=== PATIENT | female | born 1985 | race American Indian/Alaskan Native ===

== ENCOUNTER 2017-04-06 03:47 | Emergency (ER) | payer BC ==
[2017-04-06 04:05] VITALS: O2SAT 99
--- NOTE | 2017-04-06 04:09 | C.PDOC ---
History Of Present Illness pt states that she woke up with her mouth itching and a feeling of tightness in her throat. took a benadrul and claritin [employer]. Speaking in complete sentences. States thatshe has had similar episodes about once every 4-6 weeks. Unknown etiology. Pt was unable to find a correlation with anything., She does state that sometimes if she eats at restaurants, she get this sensation. last ate a kale salad and a pretzel. No f/c/n/v Time Seen by Provider: 04/06/17 04:05 Chief Complaint (Nursing): Allergic Reaction History Per: Patient History/Exam Limitations: no limitations Onset/Duration Of Symptoms: Hrs Current Symptoms Are (Timing): Still Present Context: Other Possible Cause: Unknown Associated Symptoms: Swelling. denies: Chest Pain Home/EMS Treatment: Benadryl Severity: Moderate Pain Scale Rating Of: 4 Recent travel outside of the [place]: No Additional History Per: Patient Past Medical History Reviewed: Historical Data, Nursing Documentation, Vital Signs Vital Signs: Last Vital Signs Temp 98.9 F 04/06/17 03:58 Pulse 95 H 04/06/17 03:58 Resp 16 04/06/17 03:58 BP 127/65 04/06/17 03:58 Pulse Ox 99 04/06/17 04:16 - Medical History PMH: Asthma Family History: States: No Known Family Hx - Social History Hx Alcohol Use: No Hx Substance Use: No Review Of Systems Constitutional: Negative for: Fever, Chills Eyes: Negative for: Redness ENT: Positive for: Mouth Swelling Cardiovascular: Negative for: Chest Pain Respiratory: Negative for: Shortness of Breath Gastrointestinal: Negative for: Nausea Genitourinary: Negative for: Dysuria Musculoskeletal: Negative for: Back Pain Skin: Negative for: Rash Neurological: Negative for: Weakness Psych: Negative for: Anxiety Physical Exam - Physical Exam Appears: Non-toxic Skin: Warm, Dry Head: Normacephalic Eye(s): bilateral: Normal Inspection Oral Mucosa: Moist Tongue: Normal Appearing Lips: Swelling (lower lip(edematous)) Teeth: Normal Dentition Throat: No Erythema, No Exudate, No Drooling Neck: Trachea Midline, Supple Chest: Symmetrical Cardiovascular: Rhythm Regular Respiratory: No Rales, No Rhonchi, No Wheezing Gastrointestinal/Abdominal: Soft, No Tenderness Extremity: Normal ROM Extremity: Bilateral: Atraumatic Neurological/Psych: Oriented x3, Normal Speech, Normal Cognition Gait: Steady ED Course And Treatment O2 Sat by Pulse Oximetry: 99 Pulse Ox Interpretation: Normal Progress Note: 6:16 pt feels better. speaking in complete sentences, tolerating po Reevaluation Time: 06:16 Reassessment Condition: Improved Disposition Counseled Patient/Family Regarding: Studies Performed, Diagnosis, Need For Followup - Disposition Referrals: [facility] [Outside] [facility] [Outside] Disposition: HOME/ ROUTINE Disposition Time: 04:09 Condition: FAIR Additional Instructions: Please return if symptoms recur. Also use benadryl, pepcid and claritin Prescriptions: Epinephrine [Epipen] 0.3 mg IJ ONCE PRN #2 auto.injct PRN Reason: Anaphylaxis Prednisone [Deltasone] 20 mg PO DAILY #5 tablet Instructions: General Allergic Reaction (ED) Forms: [facility] (Cit[place]) - Clinical Impression Clinical Impression: Allergic reaction
[2017-04-06] MEDS ORDERED: DiphenhydrAMINE 50 mg/ml Inj IVP STA (04:11)
[2017-04-06] MEDS ORDERED: Sodium Chloride 0.9% 1,000 ML IV ONE (04:12)
[2017-04-06] MEDS ORDERED: DiphenhydrAMINE 50 mg/ml Inj ONE (04:20)
[2017-04-06 06:34] VITALS: BP 121/86; PULSE 74; RESP 18; TEMP 97.8
== END 2017-04-06 06:34 | disposition home or self-care (01) ==
LOC: C.ER 03:47
DX: T78.40XA Allergy, unspecified, initial encounter (principal); X58.XXXA Exposure to other specified factors, initial encounter
CPT/HCPCS: 96361; 96374; 96375; 99283; J1200; J2930; J7040

== ENCOUNTER 2018-04-20 20:42 | Emergency (ER) | payer BC ==
--- NOTE | 2018-04-20 21:02 | C.PDOC ---
History Of Present Illness 33 year old female with Hx of allergic reaction to unknown allergen presents with concern for allergic reaction. Patient notes that one hour [employer] she began to have an itchy rash to her body that resolved with 50mg benadryl and mild sore throat with mild swelling to face which has since then improved. She reports mild SOB but denies difficulty swallowing, difficulty breathing, chest pain, new foods or detergents. Time Seen by Provider: 04/20/18 20:50 Chief Complaint (Nursing): Allergic Reaction History Per: Patient History/Exam Limitations: no limitations Onset/Duration Of Symptoms: Hrs (1) Current Symptoms Are (Timing): Still Present Possible Cause: Unknown Associated Symptoms: Skin Rash, Swelling, Dyspnea (Mild), Itching, Other (Sore throat) Home/EMS Treatment: Benadryl Recent travel outside of the [place]: No Past Medical History Reviewed: Historical Data, Nursing Documentation, Vital Signs - Medical History PMH: Asthma Family History: States: Unknown Family Hx - Social History Hx Alcohol Use: No Hx Substance Use: No Review Of Systems Except As Marked, All Systems Reviewed And Found Negative. Physical Exam - Physical Exam Appears: Non-toxic, No Acute Distress Skin: Normal Color, Warm, Dry, No Rash Head: Atraumatic, Normacephalic, No Swelling Eye(s): bilateral: Normal Inspection Nose: Normal Oral Mucosa: Moist Throat: Normal, No Other (Swelling) Neck: Normal, Supple, No Other (Swelling) Chest: Symmetrical, No Tenderness Cardiovascular: Rhythm Regular Respiratory: Normal Breath Sounds, No Rales, No Rhonchi, No Wheezing Gastrointestinal/Abdominal: Soft, No Tenderness Neurological/Psych: Oriented x3, Normal Speech Medical Decision Making Medical Decision Making: Impression: Allergic reaction. Plan: IV fluids, albuterol, solumedrol, and pepcid administered. 1201 Pt in Nad with VSS, protecting airway well. Denies any throat complaints. Given strict precautions regarding foods and detergents / new exposures. Instructed on administereing epi-pen and given return indications and followup Disposition - Disposition Referrals: [facility] [Outside] [facility] [Outside] [facility] [Outside] Disposition: HOME/ ROUTINE Disposition Time: 23:55 Condition: GOOD Additional Instructions: GEETHA BEAL, thank you for letting us take care of you today. Your provider was Shan Corrigan and you were treated for ASTHMA ALLERGIC REACTION MOUTH SWELLING. The emergency medical care you received today was directed at your acute symptoms. If you were prescribed any medication, please fill it and take as directed. It may take several days for your symptoms to resolve. Return to the Emergency Department if your symptoms worsen, do not improve, or if you have any other problems. Please contact your doctor or call one of the physicians/clinics you have been referred to that are listed on the Patient Visit Information form that is included in your discharge packet. Bring any paperwork you were given at discharge with you along with any medications you are taking to your follow up visit. Our treatment cannot replace ongoing medical care by a primary care provider outside of the emergency department. Thank you for allowing the [facility] team to be part of your care today. If you had an X-Ray or CT scan: A Radiologist will review the ED reading if any change in treatment is needed we will contact you. If you had a blood, urine, or wound culture: It will take several days for the results, if any change in treatment is needed we will contact you. If you had an STI test: It will take 48 hours for the results. Please call after 1 week if you have not heard back. Prescriptions: Epinephrine [Epipen] 0.3 mg IJ Q15MIN PRN 90 Days #1 auto.injct PRN Reason: Anaphylaxis predniSONE [Prednisone] 40 mg PO DAILY 5 Days #10 tab Instructions: Allergy Skin Testing, Seasonal Allergies (DC), Anaphylaxis (DC) Forms: [facility] (American) - Clinical Impression Clinical Impression: Allergic reaction - Scribe Statement The provider has reviewed the documentation as recorded by the Scribe Delmar Esparza All medical record entries made by the Scribe were at my direction and personally dictated by me. I have reviewed the chart and agree that the record accurately reflects my personal performance of the history, physical exam, medical decision making, and the department course for this patient. I have also personally directed, reviewed, and agree with the discharge instructions and disposition.
[2018-04-20] MEDS ORDERED: Albuterol-Ipratrop 3 mg / 0.5 (3 ml) UD INH STA (21:03)
[2018-04-20] MEDS ORDERED: Sodium Chloride 0.9% 1,000 ML IV ONE (21:03)
[2018-04-20] MEDS ORDERED: EPINEPHrine 1 mg/ml (1:1000) Inj IM ONE (21:04)
[2018-04-20] MEDS ORDERED: MethylPREDNISolone 40 mg Vial ONE (21:46)
[2018-04-20] MEDS ORDERED: Albuterol-Ipratrop 3 mg / 0.5 (3 ml) UD ONE ×2 (21:46→22:02)
[2018-04-20] MEDS ORDERED: Ipratropium 0.02% Inhal Soln (0.5 mg/2.5 ml) UD IH ONE (22:02)
[2018-04-21 00:10] VITALS: BP 107/60; PULSE 98; RESP 17; TEMP 98.7; O2SAT 99
== END 2018-04-21 00:40 | disposition home or self-care (01) ==
LOC: C.ER 20:42
DX: T78.40XA Allergy, unspecified, initial encounter (principal)
CPT/HCPCS: 96374; 96375; 99283; J2930; J7030